=== PATIENT | male | born 1960 | race Caucasian/White ===

== ENCOUNTER 2019-04-24 09:25 | Emergency (ER) | payer BC ==
[2019-04-24 09:56] VITALS: BP 169/94
--- NOTE | 2019-04-24 10:37 | UC ---
Throat Pain/Nasal Carlos HPI - HPI Summary HPI Summary: 58 year old male who awakened with left sided facial swelling yesterday which improved as the day progressed. Today he has right sided facial swelling. He had all teeth extracted this Spring and had no adverse healing issues. He denies any fever or chills. He denies any cold symptoms or sore throat. States today he feels like he has some difficulty swallowing however has no difficulty breathing. He is a smoker. - History of Current Complaint Chief Complaint: UCGeneralIllness Stated Complaint: FACIAL SWELLING Time Seen by Provider: 04/24/19 10:32 Hx Obtained From: Patient Onset/Duration: Gradual Onset Severity: Mild Pain Intensity: 0 Cough: None Associated Signs & Symptoms: Positive: Other - Denies a sore throat however states he feels like he has mild difficulty swallowing today. - Allergies/Home Medications Allergies/Adverse Reactions: Allergies Allergy/AdvReac Type Severity Reaction Status Date / Time Penicillins Allergy Unknown Verified 04/24/19 09:49 Reaction Details Home Medications: Home Medications Lisinopril TAB* [Prinivil TAB*] 5 mg PO DAILY 04/24/19 [History Confirmed ] cloNIDine TAB* [Catapres 0.1 MG TAB*] 0.1 mg PO TID 04/24/19 [History Confirmed 04/24/19] PMH/Surg Hx/FS Hx/Imm Hx Previously Healthy: Yes - Surgical History Surgical History: None - Family History Known Family History: Positive: Non-Contributory - Social History Alcohol Use: Occasionally Substance Use Type: None Smoking Status (MU): Light Every Day Tobacco Smoker Type: Cigarettes Amount Used/How Often: 5-6 cigarettes daily Review of Systems All Other Systems Reviewed And Are Negative: Yes Skin: Positive: Other - Left-sided facial swelling yesterday which resolved and right-sided facial swelling with redness today. He states today his right eyelids were swollen and closed however that has improved. ENT: Positive: Other - Denies cold symptoms, denies a sore throat however states occasionally he has Is Patient Immunocompromised?: No Physical Exam Triage Information Reviewed: Yes Appearance: Well-Appearing, No Pain Distress, Well-Nourished Vital Signs: Initial Vital Signs Temp 99 F 04/24/19 09:50 Pulse 88 04/24/19 09:50 Resp 18 04/24/19 09:50 BP 169/94 09/12/19 09:50 Pulse Ox 98 04/24/19 09:50 Vital Signs Reviewed: Yes Eyes: Positive: Conjunctiva Clear, Other: - Eyelids this morning are normal. ENT: Positive: Hearing grossly normal, Pharynx normal, TMs normal, Uvula midline. Negative: Trismus, Muffled voice Dental: Positive: Other: - Gumline is pink, not swollen, nontender. Patient has had total tooth extraction has healed nicely. (NOT RECENT EXTRACTION) Neck: Positive: Supple, Nontender, No Lymphadenopathy Respiratory: Positive: Lungs clear, Normal breath sounds, No respiratory distress, No accessory muscle use Cardiovascular: Positive: RRR, No Murmur, Pulses Normal, Brisk Capillary Refill Musculoskeletal Exam: Normal Neurological Exam: Normal Psychological Exam: Normal Skin: Positive: Other - Patient has minimal redness to right facial cheek with minimal swelling, nontender on palpation. Left facial area is not swollen, mild erythema and nontender. Throat Pain/Nasal Course/Dx - Course Course Of Treatment: Soft tissue neck x-ray: FINDINGS: SOFT TISSUES: The prevertebral soft tissues are normal. BONES: Degenerative changes are noted of the spine. AIRWAY: There is a continuous air column from the pharynx to the trachea. The aryepiglottic folds are normal. The epiglottis is normal. OTHER: The lung apices are clear. The skull base is unremarkable. There is no radiopaque foreign body. IMPRESSION: UNREMARKABLE SOFT TISSUES OF THE NECK. - Differential Dx/Diagnosis Provider Diagnosis: Facial cellulitis Discharge ED - Sign-Out/Discharge Documenting (check all that apply): Patient Departure All imaging exams completed and their final reports reviewed: Yes - Discharge Plan Condition: Good Disposition: HOME Prescriptions: DOXYcycline CAP(*) [DOXYcycline 100MG CAP(*)] 100 mg PO BID 10 Days #20 cap Patient Education Materials: Cellulitis (DC) Referrals: Efrain Oliveira MD [Medical Doctor] - Ryan Barcenas DO [Primary Care Provider] - Additional Instructions: No dairy products, antacids or multivitamins 2 hours before you take the doxycycline and 2 hours after you take doxycycline, however take the doxycycline with food. Warm moist compresses to the area. Definite follow up with an ear nose and throat physician, Dr. Oliveira, next week if you have a continued feeling of something in your throat. Go to the emergency room or call 911 if you have any difficulty breathing, unable to swallow, fever or chills, worsening facial redness and swelling. - Billing Disposition and Condition Condition: GOOD Disposition: Home
== END 2019-04-24 11:28 | disposition home or self-care (01) ==
LOC: UCCORT 09:25
DX: L03.211 Cellulitis of face (principal); R13.12 Dysphagia, oropharyngeal phase; Z88.0 Allergy status to penicillin; F12.10 Cannabis abuse, uncomplicated
CPT/HCPCS: 70360; 99202; G0463